=== PATIENT | male | born 1990 | race Caucasian/White ===

== ENCOUNTER 2017-03-15 02:22 | Emergency (ER) | payer OTHER ==
[2017-03-15 02:31] VITALS: TEMP 97.9
--- NOTE | 2017-03-15 02:52 | EDPHY ---
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 Patient states it started while he was at rest. It radiates to his right testicle. Has not had any swelling. Is about a 7/10. There is some nausea with no vomiting. Cannot get into a comfortable position. Did not sustain any injuries. No urinary symptoms. He is not sexually active. Does not have a history of sexually transmitted diseases. No rash. No testicular swelling. Has had an umbilical hernia in the past is concerned might be hernia this morning. He is not taking any medications. ROS: 10 point Review of Systems is negative except as noted in the HPI. PMH: None Medications none Allergies none Social History: Positive smoking, occasional alcohol, occasional marijuana Family History: non-contributory Physical Exam: Gen: Awake, Alert, No Distress HEENT: Nose: no rhinorrhea Eyes: PERRLA, EOMI Mouth: Moist mucosa Abd: Soft, non-tender, no guarding Genital: No scrotal swelling or tenderness. No erythema. Normal testicular lie. Normal cremasteric. No palpable hernias or masses. Mild inguinal tenderness with no masses or swelling. Normal femoral pulses. No right lower quadrant abdominal pain or tenderness. Back: no CVA tenderness, no midline tenderness Ext: no edema, non-tender Skin: no rash Neuro: CN II-XII intact, Sensation grossly intact, Strength 5/5 in bilateral upper and lower extremities - Personal History Tetanus Vaccine Date: unknown - Medical/Surgical History Hx Asthma: Yes Hx Chronic Respiratory Disease: No Hx Diabetes: No Hx Cardiac Disease: No Hx Renal Disease: No Hx Cirrhosis: No Hx Alcoholism: No Hx HIV/AIDS: No Hx Splenectomy or Spleen Trauma: No Other PMH: hernia repair, asthma - Social History Smoking Status: Current every day smoker Constitutional: Initial Vital Signs Temperature (C) 36.6 C 03/15/17 02:28 Heart Rate 61 03/15/17 02:28 Respiratory Rate 16 03/15/17 02:28 Blood Pressure 144/94 H 03/15/17 02:28 O2 Sat (%) 97 03/15/17 02:28 O2 Delivery Mode Room Air Allergies/Adverse Reactions: No Known Allergies Allergy (Verified 03/15/17 02:31) Home Medications: Medication Instructions Recorded NK [No Known Home Meds] 03/15/17 Medical Decision Making ED Course/Re-evaluation: 26-year-old male with right groin pain. He has no physical findings suggestive of hernia certainly no incarcerated hernia. He does have some tenderness along the musculature of his groin consistent with a possible pulled groin. Will check a urinalysis. He has a normal genital exam. No suggestion of orchitis or testicular torsion at this time. There is no palpable hernia. Urinalysis is negative. There is no evidence of acute renal stone. I think the patient's symptoms are likely from an inguinal strain. Certainly there is no incarcerated hernia at this time. Will refer for outpatient follow-up patient will take ibuprofen as needed for pain. - Data Points Medications Given: Discontinued Medications Ibuprofen (Motrin) 600 mg PO EDNOW ONE Stop: 03/15/17 03:17 Last Admin: 03/15/17 03:40 Dose: 600 mg Departure - Departure Disposition: Home, Routine, Self-Care Clinical Impression: Inguinal strain Condition: Good Instructions: Groin Strain (ED) Additional Instructions: Follow up with primary care in 2-3 days if symptoms are not improving. He may take ibuprofen alternating with acetaminophen as needed for pain. Return to the emergency depart for increasing pain, swelling or pain in ear testicles, fevers or chills, worsening abdominal pain, nausea or vomiting, or any other concerns. Referrals: NONE *PRIMARY CARE P,. [Primary Care Provider] - As per Instructions Tabby Majano MD [Medical Doctor] - As per Instructions
[2017-03-15 03:05] LABS: COLOR COLORLESS; LEUKOCYTE ESTERASE,URINE NEGATIVE (NEGATIVE); NITRITE,URINE NEGATIVE (NEGATIVE)
[2017-03-15] MEDS ORDERED: IBUPROFEN 600 MG TAB PO ONE (03:16)
[2017-03-15 03:41] VITALS: BP 134/76; PULSE 76; RESP 12; O2SAT 94
== END 2017-03-15 03:41 | disposition home or self-care (01) ==
DX: S39.011A Strain of muscle, fascia and tendon of abdomen, initial encounter (principal); F17.200 Nicotine dependence, unspecified, uncomplicated; J45.909 Unspecified asthma, uncomplicated; X58.XXXA Exposure to other specified factors, initial encounter

== ENCOUNTER → 2017-04-27 | Outpatient (CLI) | payer OTHER | LOC: FIMAGING 09:35 | PROVIDERS: ATTEND Internal Medicine | DX: M54.16 Radiculopathy, lumbar region (principal); R10.31 Right lower quadrant pain ==

== ENCOUNTER → 2017-04-27 | Outpatient (CLI) | payer OTHER | LOC: FIMAGING 08:41 | PROVIDERS: ATTEND Internal Medicine | DX: R10.31 Right lower quadrant pain (principal); M79.604 Pain in right leg; E66.9 Obesity, unspecified ==